=== PATIENT | male | born 1990 | race Caucasian/White ===

== ENCOUNTER 2019-02-07 21:50 | Emergency (ER) | payer SELFPAY ==
[~2019-02-07] VITALS: Ht 170.2 cm; Wt 84.3 kg
[~2019-02-07 21:50] MED LIST: CYCL10TA7 PO; HYDR-4011 PO; NAPR-985 PO
[2019-02-07 21:57] VITALS: BP 140/90; PULSE 91; RESP 18; Ht 170.2 cm; Wt 84.3 kg
[2019-02-07] MEDS ORDERED: KETOROLAC 30 MG INJ IM STA (23:03)
[2019-02-07] MEDS ORDERED: DEXAMETHASONE 10 MG/ML 1 ML INJ IM ONE (23:30)
== END 2019-02-08 00:40 | disposition home or self-care (01) ==
LOC: FTE 21:50
DX: M54.5 Low back pain (principal)
CPT/HCPCS: 72100; 96372; 99284; J1100; J1885